=== PATIENT | female | born 2000 | race Caucasian/White ===

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

== ENCOUNTER 2020-05-30 16:43 | Observation (INO) | payer MEDICAID ==
[~2020-05-30] VITALS: Ht 154.9 cm; Wt 86.8 kg
[2020-05-30] MEDS ORDERED: LIDOCAINE HCL 1% 20 ML VIAL ONE (16:52)
[2020-05-30] MEDS ORDERED: LIDOCAINE HCL 2% 20ML ONE (16:53)
[2020-05-30 17:23] LABS: BASOPHILS % (AUTO) 0.3 % (0.0-5.0); EOSINOPHILS % (AUTO) 1.7 % (0.0-8.0); HEMATOCRIT 35.8 % (36-48); LYMPHOCYTES % (AUTO) 27.2 % (21.0-51.0); MEAN CORPUSCULAR HEMOGLOBIN 25.9 pg (27.0-33.0); MEAN CORPUSCULAR HGB CONC 32.4 g/dL (32.0-36.0); MEAN CORPUSCULAR VOLUME 79.9 fL (80-100); MONOCYTES % (AUTO) 6.1 % (3.0-13.0); NEUTROPHILS % (AUTO) 64.6 % (40.0-77.0); PLATELET COUNT (AUTO) 313 K/uL (130-400); RED BLOOD CELL COUNT(AUTO) 4.48 MIL/uL (4.00-5.50); RED CELL DISTRIBUTION WIDTH 12.9 % (11.0-15.5); WHITE BLOOD COUNT (AUTO) 7.2 K/uL (4.8-10.8)
[2020-05-30] MEDS ORDERED: VANCOMYCIN 1GM+NS 250ML 250 ML IV ONE (18:48)
[2020-05-30] MEDS ORDERED: TETANUS/DIPHTHERIA TOXOID [ADULT] 0.5 ML VIAL IM ONE (18:49)
[2020-05-30] MEDS ORDERED: VANCOMYCIN PROTOCOL PER PHARMACY IV SCH (19:00)
[2020-05-30] MEDS ORDERED: MORPHINE SULFATE 2 MG/ML 1ML SYG IVP PRN (19:00)
[2020-05-30] MEDS ORDERED: MORPHINE SULFATE 2 MG/ML 1ML SYG ONE (20:17)
[2020-05-30 21:45] VITALS: BP 100/54
[2020-05-30] MEDS ORDERED: PREN-196 PO (22:38)
[2020-05-30] MEDS: ACETAMINOPHEN-CODEINE 300/30MG TAB PO PRN (22:57)
[2020-05-30 23:52] VITALS: BP 106/61
[2020-05-31 04:00] VITALS: BP 104/60
[2020-05-31] MEDS: ACETAMINOPHEN-CODEINE 300/30MG TAB PO PRN (06:25)
[2020-05-31] MEDS ORDERED: PHARMACY COMMUNICATION MISC SCH (07:00)
[2020-05-31 08:00] VITALS: BP_SYST 84; BP_SYST 89; BP_DIAS 41; BP_DIAS 48
[2020-05-31 08:55] VITALS: BP 91/43
[2020-05-31 10:50] VITALS: BP 130/88
--- NOTE | 2020-05-31 10:57 | NUR ---
AMA PATIENT IS WANTING TO GO HOME AGAINST MEDICAL ADVICE. I SPOKE TO DR ZARCO BECAUSE PATIENT IS SCHEDULED FOR EXPLORATION OF RIGHT HAND WOUND AT THIS TIME. EXPLAINED TO PATIENT THE RISKS OF HER LEAVING WITHOUT HAVING SURGERY, DR ZARCO SAID THE PATIENT MIGHT HAVE POSSIBLE TENDON DAMAGE. I FULLY EXPLAINED THE RISKS TO THE PATIENT, BUT STATED SHE NEEDS TO GO HOME BECAUSE HER MOTHER HAS TAKEN HER CHILDEREN AWAY AND SHE HAS CALLED THE ORE WASHER, NEEDS TO GO NOW. THE DRESSING WAS CHANGED TO RIGHT HAND PRIOR TO PATIENT LEAVING. OPEN WOUND TO TOP OF RIGHT HAND NO BLEEDING NOTED. PATIENT IS ABLE TO MOVE ALL FINGERS WITHOUT ISSUE, PULSES TO RIGHT RADIAL AND ULNER SITES PALPABLE, HAND IS PINK AND WARM. THE [facility] AND PRE OP NURSES ALSO SPOKE TO PATIENT, HOWEVER THE PATIENT STILL DECIDED TO SIGN AMA FORM.
--- NOTE | 2020-05-31 11:11 | NUR ---
MED RECORD REVIEWED, PATIENT LEFT AMA PRIOR TO CM ASSESSMENT Addendum: 05/31/20 at 1112 by ODIN TEJADA RN CM Amended: Links added.
== END 2020-05-31 10:50 | disposition left against medical advice (07) ==
LOC: EDH 16:43 → EDHIP 16:44 → 4BH 21:50
PROVIDERS: ADMIT Surgery Plastic and Reconstructive Surgery; ATTEND Surgery Plastic and Reconstructive Surgery
DX: S61.411A Laceration without foreign body of right hand, initial encounter (principal); Z20.828 Contact with and (suspected) exposure to other viral communicable diseases; J45.909 Unspecified asthma, uncomplicated; Z72.0 Tobacco use; Z90.49 Acquired absence of other specified parts of digestive tract; Z88.0 Allergy status to penicillin; Z88.2 Allergy status to sulfonamides; Z88.1 Allergy status to other antibiotic agents; W25.XXXA Contact with sharp glass, initial encounter; Y93.89 Activity, other specified; Y92.89 Other specified places as the place of occurrence of the external cause; Y99.8 Other external cause status
CPT/HCPCS: 36415; 73130; 84702; 85025; 87426; 90471; 90714; 99284; G0378 ×17; J3370; J3490; U0003